=== PATIENT | male | born 1950 | race Caucasian/White ===

== ENCOUNTER 2025-01-19 06:14 | Day surgery (SDC) | payer MEDICARE ==
[2025-01-19] MEDS ORDERED: Lactated Ringers 1,000 ML IV ONE (06:15)
[2025-01-19] MEDS ORDERED: Propofol 200 MG/20 ML SDV IV ONE (06:15)
[2025-01-19] MEDS: Lactated Ringers 1,000 ML IV SCH (07:01)
[2025-01-19] MEDS ORDERED: Propofol 200 MG/20 ML SDV ONE (07:18)
[2025-01-19 09:31] VITALS: BP 129/68; PULSE 56
== END 2025-01-19 09:47 | disposition home or self-care (01) ==
LOC: DL.ENDO 06:14
PROVIDERS: ATTEND Internal Medicine Gastroenterology
DX: Z12.11 Encounter for screening for malignant neoplasm of colon (principal); D12.4 Benign neoplasm of descending colon; K57.30 Diverticulosis of large intestine without perforation or abscess without bleeding; E66.9 Obesity, unspecified; I10 Essential (primary) hypertension; Z68.31 Body mass index [BMI] 31.0-31.9, adult; Z88.8 Allergy status to other drugs, medicaments and biological substances; Z88.0 Allergy status to penicillin; Z86.0100 Personal history of colon polyps, unspecified
CPT/HCPCS: 00811; 45380; 88305; 99100; J2704; J7120